=== PATIENT | male | born 1995 | race Caucasian/White ===

== ENCOUNTER 2020-01-12 18:41 | Emergency (ER) | payer OTHER, SELFPAY ==
[2020-01-12 18:43] VITALS: BP 145/83; PULSE 115; RESP 20; TEMP 36.2; O2SAT 99; BMI 25.0
--- NOTE | 2020-01-12 19:20 | EKG12_ITS ---
Test Reason : DYSRHYTHMIA Blood Pressure : / mmHG Vent. Rate : 093 BPM Atrial Rate : 093 BPM P-R Int : 132 ms QRS Dur : 090 ms QT Int : 352 ms P-R-T Axes : 069 055 000 degrees QTc Int : 437 ms Normal sinus rhythm Nonspecific T wave abnormality Abnormal ECG Confirmed by VALERIA LABOY ([id number]), staff editor JUAN GOODWIN ([id number]) on 01/14/2020 3:12:02 PM Referred By: TRELL Confirmed By:VALERIA LABOY
--- NOTE | 2020-01-12 19:22 | ED.VIS.GEN ---
History of Present Illness Chief Complaint: Cough Informant: Patient Onset: Yesterday Context: Gradual Onset Timing: Continuous Current Severity: Moderate Maximum Severity: Moderate Narrative: The patient presents to the emergency department with cough and shortness of breath. The patient states his symptoms began over the past 2 days. He describes a pressure across his chest with shortness of breath and cough. He went to urgent care yesterday. He states he was given an inhaler and Sudafed. He did have strep throat about 4 months ago. He denies any sore throat. He is unsure if he had fever but does admit to chills. He states he also has history of recurrent pneumonia and this feels similar. Patient takes no daily medications but does smoke. He states he is never been diagnosed with asthma. Prior similar symptoms: No Recent Illness/Hospitalization: No Past Medical History - Allergies and Home Meds Allergies/Adverse Reactions: Allergies No Known Allergies Allergy (Verified 01/12/20 18:42) Primary Care Physician: Care Physician,No Primary [Primary Care Provider] - Prior records reviewed: Yes Past Medical History: None Surgical History: no surgical history Smoking Status: Current every day smoker Review of Systems General: Denies: Chills, Fever, Sweats Eyes: Denies: Visual changes - bilaterally, Diplopia ENT: Denies: Rhinorrhea, Sore throat Cardiovascular: Denies: Chest pain, Palpitations Respiratory: Reports: Dyspnea, Cough. Denies: Dyspnea on exertion Gastrointestinal: Denies: Abdominal pain, Nausea, Vomiting, Diarrhea, Melena, Hematochezia Genitourinary: Denies: Dysuria, Hematuria, Frequency Musculoskeletal: Denies: Back pain, Extremity Pain Skin: Denies: Rash, Wounds Neurological: Denies: Headache, Weakness, Numbness Physical Exam Vital Signs/Narrative: Vital Signs Temp Pulse Resp BP Pulse Ox 01/12/20 18:43 97.2 F L 115 H 20 H 145/83 H 99 Inital Vital Signs reviewed: Yes General: Well nourished, Well developed, No Acute Distress Head: Normocephalic, Atraumatic Eyes: Perrl, EOMI ENT: Moist mucous membranes, No rhinorrhea Neck: Supple, Nontender Cardiovascular: Regular rate, Regular rhythm, No murmurs Respiratory: No distress, Chest nontender, Wheezing, Decreased Air Movement Abdomen: Soft, Nontender, Nondistended, Normal bowel sounds Back: Nontender, Normal Inspection Extremities: Nontender, No edema Skin: Normal color, No rash Neurological: Alert, Oriented x3, Cranial nerves II-XII grossly intact, Normal Strength, Normal Sensation Psychological: Normal affect, Normal Mood Diagnostic/Tx/Re-eval Clinical Impression(s) from Imaging Studies Chest X-Ray 01/12/20 19:30 IMPRESSION: Normal x-ray examination of the chest. Electronically Signed: Manfred Fritz MD at 19:52 EST , Service support , Abnormal Lab Results 01/12/20 01/12/20 19:30 19:30 WBC 10.3 RBC 5.12 Hgb 15.7 Hct 47.2 MCV 92.2 MCH 30.7 MCHC 33.3 RDW Std Deviation 41.1 RDW Coeff of Carola 12.0 Plt Count 198 MPV 10.5 Immature Gran % (Auto) 0.300 Neut % (Auto) 66.5 Lymph % (Auto) 16.7 L [place] % (Auto) 13.0 H Eos % (Auto) 3.3 Baso % (Auto) 0.2 Absolute Neuts (auto) 6.9 Absolute Lymphs (auto) 1.72 Nucleated RBC % 0 Sodium 138 Potassium 4.2 Chloride 105 Carbon Dioxide 30.0 Anion Gap 3 L BUN 11 Creatinine 1.17 Estim Creat Clear Calc 114.35 Est GFR (MDRD) Af Amer 97 Est GFR (MDRD) Non-Af 80 BUN/Creatinine Ratio 9.4 L Glucose 79 Calcium 9.4 Total Bilirubin 0.40 AST 13 L ALT 38 Alkaline Phosphatase 100 Total Protein 7.8 Albumin 4.3 Globulin 3.5 Albumin/Globulin Ratio 1.2 - Medical Decision Making EKG was obtained on patient arrival. It was sinus rhythm. There is no acute ischemia. It was unchanged from prior. QT interval was normal. The patient does have persistent bronchospasm. He was given a nebulized breathing treatment with improvement. I did obtain a chest x-ray which does not show any focal infiltrative process, but the patient does have focal rhonchi in his right upper lobe. Labs are unremarkable. I do feel the patient would benefit from antibiotic treatment given his symptoms. He will be started on azithromycin for atypical coverage. The patient is comfortable with this plan of care and will be discharged home. Impression 1. Community-acquired pneumonia ED Disposition - Plan for ED Patient: Instructions: BRONCHITIS, Antiobiotic Treatment (Adult) Prescriptions: Prednisone [Deltasone] 60 mg PO DAILY #15 tab Prescription Printed Azithromycin [Zithromax] 250 mg PO DAILY #4 tab Prescription Printed Referrals: Care Physician,No Primary [Primary Care Provider] -
[2020-01-12] MEDS: 0.9% Normal Saline 1,000 ML 1000 ML IV (19:28)
[2020-01-12] MEDS: Ketorolac 30 MG/ML Syringe IV (19:28)
--- NOTE | 2020-01-12 19:30 | RAD_ITS ---
STUDY: X-RAY CHEST REASON FOR EXAM: Male, 24 years old. cough, chest pain TECHNIQUE: PA and lateral COMPARISON: None. FINDINGS: The lungs are clear and expanded. There is no demonstrated pleural abnormality. Normal size heart. Normal mediastinum and ansley. Normal visualized pulmonary arteries. Normal visualized aortic arch and descending thoracic aorta. Normal visualized thoracic spine. Normal visualized ribs, clavicles, and shoulders. There is no demonstrated abnormality of the visualized soft tissue structures of the upper abdomen. RAD/Chest PA and Lateral IMPRESSION: Normal x-ray examination of the chest. Electronically Signed: Manfred Fritz MD at 19:52 EST , Service support ,
--- NOTE | 2020-01-12 19:32 | ED.RN ---
NO OLD EKGS IN MUSE
[2020-01-12 19:43] LABS: Absolute Lymphocyte Count 1.72 X10^3/uL (0.83-4.51); Absolute Neutrophil Count 6.9 X10^3/uL (2.0-7.7); Basophil# 0.02 X10^3/uL; Basophil% 0.2 % (0-1); Eosinophil# 0.34 X10^3/uL; Eosinophils% 3.3 % (0-5); Hematocrit 47.2 % (40-54); Hemoglobin 15.7 g/dL (13.0-16.5); Lymphocyte # 1.72 X10^3/ul (4.0); Lymphocyte % 16.7 % (19-41); Mean Corp Hgb Conc 33.3 g/dL (32-36); Mean Corpuscular Hgb 30.7 pg (27.0-32.0); Mean Corpuscular Volume 92.2 fL (80-94); Mean Platelet Vol. 10.5 fl (6.2-12.0); Monocyte# 1.34 X10^3/uL; NRBC Flagged by Analyzer 0 % (0-5); Neutrophil # 6.88 X10^3/uL (2.7-7.7); Neutrophil % 66.5 % (47-70); Platelet Count 198 K/mm3 (150-450); RBC Distribution Width SD 41.1 fl (35.1-43.9); Red Blood Count 5.12 M/mm3 (4.6-6.2); White Blood Count 10.3 K/mm3 (4.4-11.0)
[2020-01-12 19:52] VITALS: PULSE 113; RESP 22
[2020-01-12] MEDS: Ipratropium/Albuterol Sulfate 3 ML AMPUL.NEB INHALATION (19:52)
[2020-01-12 20:01] LABS: ALB/GLOB Ratio 1.2 RATIO (0.9-2.4); AST(SGOT) 13 U/L (15-37); Alanine Aminotransfer ALT/SGPT 38 U/L (16-61); Albumin, Serum 4.3 g/dL (3.2-5.0); Alkaline Phosphatase 100 U/L (45-117); Anion Gap 3 (5-15); BUN 11 mg/dL (7-18); BUN/Creat Ratio 9.4 RATIO (10-20); Calcium,Total 9.4 mg/dL (8.5-10.1); Chloride 105 mmol/L (98-107); Creatinine, Serum 1.17 mg/dL (0.70-1.30); EST Glomerular Filtration Rate 80 mL/min (>60); Est Glom Filt Rate - Afr Amer 97 mL/min (>60); Estimated Creatinine Clearance 114.35 ml/min; Globulin 3.5 g/dL (2.2-4.2); Glucose 79 mg/dL (74-106); Potassium 4.2 mmol/L (3.5-5.1); Protein, Total 7.8 g/dL (6.4-8.2); Sodium Level 138 mmol/L (136-145)
[2020-01-12 20:42] VITALS: BP 119/75; PULSE 91; RESP 18; O2SAT 97
[2020-01-12] MEDS: Azithromycin 250 MG Tablet 500 MG PO (21:09)
[2020-01-12] MEDS: predniSONE 20 MG Tablet 60 MG PO (21:09)
== END 2020-01-12 21:13 | disposition home or self-care (01) ==
PROVIDERS: Emergency Provider Emergency Medicine
DX: J18.9 Pneumonia, unspecified organism (principal); F17.200 Nicotine dependence, unspecified, uncomplicated; R94.31 Abnormal electrocardiogram [ECG] [EKG]
CPT/HCPCS: 71046; 80053; 85025; 87804; 93005; 94640; 96361; 96374; 99285; J7030; A4216

== ENCOUNTER 2024-05-29 17:47 | Emergency (ER) | payer SELFPAY ==
[2024-05-29 17:48] VITALS: BP 148/116; PULSE 97; RESP 18; TEMP 36.4; O2SAT 99; BMI 28.3
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
[2024-05-29] MEDS: HYDROcodone Bitartrate/Apap 5/325 Tablet PO (19:22)
== END 2024-05-29 19:35 | disposition home or self-care (01) ==
PROVIDERS: Emergency Provider Emergency Medicine; Visit Provider Emergency Medicine
DX: S52.121A Displaced fracture of head of right radius, initial encounter for closed fracture (principal); S92.142A Displaced dome fracture of left talus, initial encounter for closed fracture; S93.402A Sprain of unspecified ligament of left ankle, initial encounter; S80.02XA Contusion of left knee, initial encounter; S80.12XA Contusion of left lower leg, initial encounter; M25.531 Pain in right wrist; M79.631 Pain in right forearm; V28.49XA Other motorcycle driver injured in noncollision transport accident in traffic accident, initial encounter; Y92.410 Unspecified street and highway as the place of occurrence of the external cause; R26.2 Difficulty in walking, not elsewhere classified; F17.290 Nicotine dependence, other tobacco product, uncomplicated
CPT/HCPCS: 73080; 73110; 73564; 73610; 73630; 99283